=== PATIENT | male | born 1965 | race Hispanic/Latino ===

== ENCOUNTER 2020-12-06 14:09 | Inpatient (IN) | payer OTHER, SELFPAY ==
[2020-12-06 15:23] LABS: Absolute Lymphocytes (CBC) 0.6 K/uL (0.7-4.9); Basophils % 0.3 % (0-1.3); Hematocrit 45.5 % (39.6-49.0); Lymphocytes % 4.7 % (15.3-44.8); RBC Red Blood Cell Count 5.18 M/uL (4.33-5.43)
[2020-12-06] MEDS ORDERED: ENOXAPARIN 80 MG/0.8 ML SQ ONE (15:36)
[2020-12-06] MEDS ORDERED: ACETAMINOPHEN 500 MG TAB ONE (15:36)
[2020-12-06] MEDS ORDERED: METHYLPREDNISOLONE 125 MG INJ ONE (15:36)
[2020-12-06 15:38] LABS: Protime INR 1.58
[2020-12-06] MEDS ORDERED: NA CHLORIDE 0.9% 1,000 ML ONE (15:38)
[2020-12-06 16:06] LABS: ALT/SGPT 65 U/L (12-78); AST/SGOT 70 U/L (15-37); Albumin 2.6 g/dL (3.4-5.0); Alkaline Phosphatase 60 U/L (45-117); BUN Blood Urea Nitrogen 19 mg/dL (7-18); Bicarbonate 26 mmol/L (21-32); Bilirubin Direct 0.3 mg/dL (0-0.2); Bilirubin Total 0.7 mg/dL (0.2-1.0); Ferritin 1604.4 ng/mL (26-388); Glucose Level 131 mg/dL (74-106); Protein, Total 7.7 g/dL (6.4-8.2); Sodium Level 130 mmol/L (136-145); Troponin (Emerg Dept Use Only) < 0.02 ng/mL (0.0-0.045)
--- NOTE | 2020-12-06 16:09 | RAD REPORT ---
EXAM DESCRIPTION: RAD - Chest Single View - 12/06/2020 3:20 pm CLINICAL HISTORY: DYSPNEA, COVID positive December 01 COMPARISON: None TECHNIQUE: AP portable chest image was obtained 12/06/2020 3:20 pm . FINDINGS: Patchy airspace opacification present in the mid right lung field in the mid and lower lef t lung field. Given the history, bilateral COVID-19 pneumonia would be most likely. This is mild in s everity. No significant central pulmonary edema pattern. Heart and vasculature are normal. No measura ble pleural effusion and no pneumothorax. No acute bony abnormality seen. No acute aortic findings morris spected. IMPRESSION: Mild bilateral COVID-19 pneumonia pattern.
--- NOTE | 2020-12-06 16:49 | RAD REPORT ---
EXAM DESCRIPTION: CT - Chest For Pe Angio - 12/06/2020 4:33 pm CLINICAL HISTORY: DYSPNEA COMPARISON: Chest Single View dated 12/06/2020 TECHNIQUE: Dynamically enhanced 3 mm thick images of the chest were obtained during administration o f approximately 150mL Isovue 370 IV contrast. Coronal and oblique MIP reconstruction images were gene rated and reviewed. Exam utilizes a protocol to evaluate the pulmonary arterial tree. All CT scans are performed using dose optimization technique as appropriate and may include automated exposure control or mA/KV adjustment according to patient size. FINDINGS: No pulmonary emboli are identified. The aorta as imaged shows no acute or suspicious finding. No pericardial thickening or effusion. Bilateral ground-glass opacification is present primarily in a peripheral distribution. Findings are more pronounced in the superior segment and midportion of the left lower lobe. This is a well describ ed pattern with COVID-19 pneumonia and matches the provided clinical history. Non COVID viral pneumon ia can also have this appearance. Other etiologies are unlikely given the history and current clinica l environment. No pleural effusion or pleural thickening. No mediastinal or hilar suspicious masses. No chest wall masses or abnormal axillary lymphadenopathy. IMPRESSION: No pulmonary emboli identified. Mild to moderate severity bilateral COVID-19 pneumonia.
--- NOTE | 2020-12-06 17:10 | ER ---
Nurse's Notes [facility] – [place], [place] Name: Víctor Harper Age: 55 yrs Sex: Male : 1965 Arrival Date: 12/06/2020 Time: 14:10 Bed 25 Private MD: Diagnosis: Pneumonia due to SARS-associated coronavirus;Acute respiratory failure with hypoxia Presentation: 12/06 14:39 Chief complaint: Patient states: Covid+ 12/01/2020, S/S 11/29/2020. Feels worse now, ca1 cough, SOB, very weak. Coronavirus screen: Client reports previous positive COVID test result. Date of collection: December 01, 2020. Ebola Screen: Patient negative for fever greater than or equal to 101.5 degrees Fahrenheit, and additional compatible Ebola Virus Disease symptoms Patient denies exposure to infectious person. Patient denies travel to an Ebola-affected area in the 21 days before illness onset. Patient positive for the following Ebola Virus Disease associated symptoms:. Initial Sepsis Screen: Does the patient meet any 2 criteria? Temp <36.0*C (96.8*F)) or > 38.3*C (100.9*F). HR > 90 bpm. Yes Does the patient have a suspected source of infection? Yes: Productive cough/pneumonia. Risk Assessment: Do you want to hurt yourself or someone else? Patient reports no desire to harm self or others. Onset of symptoms was December 06, 2020. 14:39 Method Of Arrival: Wheelchair ca1 14:39 Acuity: LUCRETIA 2 ca1 Triage Assessment: 15:14 Respiratory: Onset: The symptoms/episode began/occurred 2 days ago . zb Historical: - Allergies: 14:42 No Known Allergies; ca1 - Home Meds: 14:42 None [Active]; ca1 - PMHx: 14:42 None; ca1 - PSHx: 14:42 None; ca1 - Immunization history:: Flu vaccine is not up to date. - Social history:: Smoking status: Patient denies any tobacco usage or history of. Screenin:13 Abuse screen: Denies threats or abuse. Denies injuries from another. Nutritional zb screening: No deficits noted. Tuberculosis screening: No symptoms or risk factors identified. Fall Risk None identified. Assessment: 15:00 General: Appears in no apparent distress. uncomfortable, Behavior is calm, cooperative, zb appropriate for age, Reports chills for >3 days, fever for > 3 days, feeling ill for > 3 days, fatigue for >3 days. Pain: Denies pain. Neuro: Level of Consciousness is awake, alert, obeys commands, Oriented to person, place, time, situation. Cardiovascular: Reports shortness of breath, Heart tones S1 S2 present Capillary refill < 3 seconds Patient's skin is warm and dry. Rhythm is sinus tachycardia Chest pain is denied. Respiratory: Reports shortness of breath at rest cough that is dry, Airway is patent Respiratory effort is even, unlabored, Respiratory pattern is regular, symmetrical, Breath sounds are clear bilaterally. the patient has moderate shortness of breath. GI: No signs and/or symptoms were reported involving the gastrointestinal system. Derm: Skin is intact, is healthy with good turgor, Skin is dry, Skin is normal, Skin temperature is hot. Musculoskeletal: Range of motion: intact in all extremities. 16:00 Reassessment: Patient appears in no apparent distress at this time. patient appears to zb be doing better. appears less fatigued. 17:05 Reassessment: ECP at bedside discussing care. zb 18:17 Reassessment: Patient appears in no apparent distress at this time. Patient and/or zb family updated on plan of care and expected duration. Pain level reassessed. patient states he is feeling better. currently awaiting a room. 18:20 Reassessment: attempted to call report. Advised to call back later. zb 18:50 Reassessment: hospitalist at bedside discussing care. zb 19:30 Reassessment: report called patient notified of room and admission. zb 20:41 Reassessment: patient left ER. zb Vital Signs: 14:39 BP 101 / 75; Pulse 121; Resp 20 S; Temp 103(TE); Pulse Ox 95% on R/A; Weight 84.37 kg ca1 (R); Height 5 ft. 9 in. (175.26 cm) (R); Pain 5/10; 15:20 BP 142 / 89; Pulse 110; Resp 21; Pulse Ox 88% on R/A; zb 15:35 BP 114 / 81; Pulse 107; Resp 22; Pulse Ox 95% on 3 lpm NC; zb 16:30 BP 114 / 81; Pulse 112; Resp 24; Pulse Ox 95% 3 lpm ; zb 17:16 BP 120 / 80; Pulse 88; Resp 25; Temp 99.2; zb 18:17 BP 110 / 82; Pulse 89; Resp 18; Pulse Ox 94% 3 lpm ; zb 19:30 BP 115 / 86; Pulse 83; Resp 21; Pulse Ox 97% 3 lpm ; zb 20:41 BP 125 / 89; Pulse 87; Resp 20; Pulse Ox 95% 3 lpm ; zb 14:39 Body Mass Index 27.47 (84.37 kg, 175.26 cm) ca1 ED Course: 14:10 Patient arrived in ED. as 14:42 Triage completed. ca1 14:42 Arm band placed on right wrist. ca1 14:44 Liset Mendoza FNP-C is PHCP. kb 14:44 Filemon Joy MD is Attending Physician. kb 14:46 Reji Jim PA is PHCP. kb 15:11 Evonne Sanchez, MIKALA is Primary Nurse. zb 15:13 Patient has correct armband on for positive identification. Bed in low position. Call zb light in reach. Side rails up X 1. dictaphone mechanic on. Pulse ox on. NIBP on. Door closed. Noise minimized. 15:14 Initial lab(s) drawn, by me, sent to lab. EKG done, by administrative tech. reviewed by Reji DINH COVID swab sent to lab. Flu and/or RSV swab sent to lab. Inserted saline lock: 20 gauge in right antecubital area, using aseptic technique. Blood collected. 15:21 CXR XRAY In Process Unspecified. EDMS 16:33 CT Chest For PE Angio In Process Unspecified. EDMS 17:09 Gurpreet Lloyd MD is Hospitalizing Provider. jr8 20:43 No provider procedures requiring assistance completed. Patient admitted, IV remains in zb place. Administered Medications: 15:30 Drug: SOLU-Medrol 125 mg Route: IVP; Site: right antecubital; zb 16:00 Follow up: Response: No adverse reaction; No change in condition zb 15:30 Drug: Lovenox 1 mg/kg Route: Sub-Q; Site: right lower abdomen; zb 17:14 Follow up: Response: No adverse reaction; Marked relief of symptoms zb 15:30 Drug: Tylenol 1000 mg Route: PO; zb 17:14 Follow up: Response: No adverse reaction; Temperature is decreased zb 15:30 Drug: NS 0.9% 1000 ml Route: IV; Rate: 1000 ml; Site: right antecubital; zb 17:09 Follow up: Response: No adverse reaction; Marked relief of symptoms; No change in zb condition; IV Status: Completed infusion; IV Intake: 1000ml Intake: 17:09 IV: 1000ml; Total: 1000ml. zb Outcome: 17:09 Decision to Hospitalize by Provider. albino 20:43 Admitted to Med/surg accompanied by tech, room 410, with oxygen, with chart, Report zb called to MIKALA Fountain 20:43 Condition: stable 20:43 Instructed on the need for admit, Demonstrated understanding of instructions. 20:44 Patient left the ED. zb Signatures: Dispatcher [employer] EDMS Liset Mendoza, SHAILA-Adilson LEEP-Jessica Antoine Josh, PA PA jr8 Dayan Lara, RN Evonne Linares RN RN zb Corrections: (The following items were deleted from the chart) 18:19 17:16 Pulse 88bpm; Resp 25bpm; Temp 99.2F; zb zb
--- NOTE | 2020-12-06 17:10 | EDPHYS ---
Physician Documentation [facility] Name: Víctor Harper Age: 55 yrs Sex: Male : 1965 Arrival Date: 12/06/2020 Time: 14:10 Bed 25 Private MD: ED Physician Filemon Joy HPI: 12/06 17:07 This 55 yrs old Male presents to ER via Wheelchair with complaints of jr8 Shortness Of Breath - covid+. 17:07 The patient has shortness of breath at rest. Onset: The symptoms/episode began/occurred jr8 gradually, 2 day(s) ago, and became worse and became persistent. Duration: The symptoms are continuous. The patient's shortness of breath is aggravated by talking, walking. Associated signs and symptoms: Pertinent positives: non-productive cough, fever. Severity of symptoms: At their worst the symptoms were moderate in the emergency department the symptoms are unchanged. The patient has not experienced similar symptoms in the past. The patient has been recently seen by a physician:. Patient diagnosed this past Friday with COVID. Stated that he has since been getting worse. Patinet 88% RA with tachypnea and fever upon arrival . Historical: - Allergies: 14:42 No Known Allergies; ca1 - Home Meds: 14:42 None [Active]; ca1 - PMHx: 14:42 None; ca1 - PSHx: 14:42 None; ca1 - Immunization history:: Flu vaccine is not up to date. - Social history:: Smoking status: Patient denies any tobacco usage or history of. ROS: 17:07 Eyes: Negative for injury, pain, redness, and discharge, ENT: Negative for injury, jr8 pain, and discharge, Neck: Negative for injury, pain, and swelling, Cardiovascular: Negative for chest pain, palpitations, and edema, Abdomen/GI: Negative for abdominal pain, nausea, vomiting, diarrhea, and constipation, Back: Negative for injury and pain, MS/Extremity: Negative for injury and deformity, Skin: Negative for injury, rash, and discoloration, Neuro: Negative for headache, weakness, numbness, tingling, and seizure. 17:07 Constitutional: Positive for body aches, chills, fever, malaise. 17:07 Respiratory: Positive for cough, dyspnea on exertion, shortness of breath. Exam: 17:07 Eyes: Pupils equal round and reactive to light, extra-ocular motions intact. Lids and jr8 lashes normal. Conjunctiva and sclera are non-icteric and not injected. Cornea within normal limits. Periorbital areas with no swelling, redness, or edema. ENT: Nares patent. No nasal discharge, no septal abnormalities noted. Tympanic membranes are normal and external auditory canals are clear. Oropharynx with no redness, swelling, or masses, exudates, or evidence of obstruction, uvula midline. Mucous membranes moist. Neck: Trachea midline, no thyromegaly or masses palpated, and no cervical lymphadenopathy. Supple, full range of motion without nuchal rigidity, or vertebral point tenderness. No Meningismus. Abdomen/GI: Soft, non-tender, with normal bowel sounds. No distension or tympany. No guarding or rebound. No evidence of tenderness throughout. Back: No spinal tenderness. No costovertebral tenderness. Full range of motion. Skin: Warm, dry with normal turgor. Normal color with no rashes, no lesions, and no evidence of cellulitis. MS/ Extremity: Pulses equal, no cyanosis. Neurovascular intact. Full, normal range of motion. Neuro: Awake and alert, GCS 15, oriented to person, place, time, and situation. Cranial nerves II-XII grossly intact. Motor strength 5/5 in all extremities. Sensory grossly intact. 17:07 Cardiovascular: Rate: tachycardic, Rhythm: regular, Pulses: Pulses are 2+ in right radial artery and left radial artery. Heart sounds: normal, normal S1and S2, no S3 or S4, no murmur, no rub, no gallop, Edema: is not appreciated. 17:07 Respiratory: mild respiratory distress is noted, Respirations: tachypnea, Breath sounds: are clear throughout, no bronchial sounds, no decreased breath sounds, no rales, rhonchi, no stridor, no wheezing. Vital Signs: 14:39 BP 101 / 75; Pulse 121; Resp 20 S; Temp 103(TE); Pulse Ox 95% on R/A; Weight 84.37 kg ca1 (R); Height 5 ft. 9 in. (175.26 cm) (R); Pain 5/10; 15:20 BP 142 / 89; Pulse 110; Resp 21; Pulse Ox 88% on R/A; zb 15:35 BP 114 / 81; Pulse 107; Resp 22; Pulse Ox 95% on 3 lpm NC; zb 16:30 BP 114 / 81; Pulse 112; Resp 24; Pulse Ox 95% 3 lpm ; zb 17:16 BP 120 / 80; Pulse 88; Resp 25; Temp 99.2; zb 18:17 BP 110 / 82; Pulse 89; Resp 18; Pulse Ox 94% 3 lpm ; zb 19:30 BP 115 / 86; Pulse 83; Resp 21; Pulse Ox 97% 3 lpm ; zb 20:41 BP 125 / 89; Pulse 87; Resp 20; Pulse Ox 95% 3 lpm ; zb 14:39 Body Mass Index 27.47 (84.37 kg, 175.26 cm) ca1 MDM: 14:44 Patient medically screened. kb 17:07 Data reviewed: vital signs, nurses notes, lab test result(s), EKG, radiologic studies, [facility] CT scan, plain films. Data interpreted: Pulse oximetry: on room air is 88 %. Interpretation: hypoxia. Counseling: I had a detailed discussion with the patient and/or guardian regarding: the historical points, exam findings, and any diagnostic results supporting the discharge/admit diagnosis, lab results, radiology results, the need for further work-up and treatment in the hospital. 12/06 14:57 Order name: Flu 12/06 14:57 Order name: Blood Culture Adult (2) 12/06 14:57 Order name: BMP; Complete Time: 17:12/06 14:57 Order name: C-Reactive Protein; Complete Time: 17:12/06 14:57 Order name: CBC with Diff; Complete Time: 16:12/06 14:57 Order name: D-Dimer; Complete Time: 16:05 12/06 14:57 Order name: Ferritin; Complete Time: 17:02 12/06 14:57 Order name: Lactate; Complete Time: 16:05 12/06 14:57 Order name: LFT's; Complete Time: 17:02 12/06 14:57 Order name: Procalcitonin; Complete Time: 17:02 12/06 14:57 Order name: PT-INR; Complete Time: 16:05 12/06 14:57 Order name: Ptt, Activated; Complete Time: 16:05 8 12/06 14:57 Order name: Troponin (emerg Dept Use Only); Complete Time: 17:02 8 12/06 14:57 Order name: CXR XRAY; Complete Time: 17:02 8 12/06 14:57 Order name: EKG; Complete Time: 14:58 8 12/06 14:57 Order name: Cardiac monitoring; Complete Time: 15:34 8 12/06 14:57 Order name: Droplet/Contact Precautions; Complete Time: 15:34 8 12/06 14:57 Order name: EKG - Nurse/Tech; Complete Time: 15:34 8 12/06 14:58 Order name: Blood Culture EDMD 12/06 16:05 Order name: CT Chest For PE Angio; Complete Time: 17:02 8 12/06 17:27 Order name: Regular EDMS 12/06 17:27 Order name: Basic Metabolic Panel EDMD 12/06 17:27 Order name: Basic Metabolic Panel EDMD 12/06 17:34 Order name: COVID-19/FLU A+B; Complete Time: 17:40 EDMS 12/06 14:57 Order name: IV Start; Complete Time: 15:34 [facility] 12/06 14:57 Order name: Labs collected and sent; Complete Time: 15:34 [facility] 12/06 14:57 Order name: O2 Per Protocol; Complete Time: 15:34 8 12/06 14:57 Order name: O2 Sat Monitoring; Complete Time: 15:34 Administered Medications: 15:30 Drug: SOLU-Medrol 125 mg Route: IVP; Site: right antecubital; zb 16:00 Follow up: Response: No adverse reaction; No change in condition zb 15:30 Drug: Lovenox 1 mg/kg Route: Sub-Q; Site: right lower abdomen; zb 17:14 Follow up: Response: No adverse reaction; Marked relief of symptoms zb 15:30 Drug: Tylenol 1000 mg Route: PO; zb 17:14 Follow up: Response: No adverse reaction; Temperature is decreased zb 15:30 Drug: NS 0.9% 1000 ml Route: IV; Rate: 1000 ml; Site: right antecubital; zb 17:09 Follow up: Response: No adverse reaction; Marked relief of symptoms; No change in zb condition; IV Status: Completed infusion; IV Intake: 1000ml Disposition: 12/07 08:04 Co-signature as Attending Physician, Filemon Joy MD I agree with the assessment and kdr plan of care. Disposition: 12/06/20 17:09 Hospitalization ordered by Gurpreet Lloyd for Inpatient Admission. Preliminary diagnosis are Pneumonia due to SARS-associated coronavirus, Acute respiratory failure with hypoxia. - Bed requested for Telemetry/MedSurg (Inpatient). - Status is Inpatient Admission. zb - Condition is Fair. - Problem is new. - Symptoms have improved. Signatures: Dispatcher [employer] EDMS Liset Mendoza, ASSISTANT [employer]OMENS [employer]LEYB[employer] COACH-C ASSISTANT WOMENS VOLLEYB[employer] COACH-Ckb Maranda Gregory Kevin, MD MD kdr Roszak, Josh, PA PA jr8 Dayan Lara, RN RN ca1 Evonne Sanchez RN RN zb Corrections: (The following items were deleted from the chart) 12/06 16:27 14:58 Influenza Screen (A ordered. EDMS EDMS 16:27 14:58 CORONAVIRUS+MR.LAB.BRZ ordered. EDMD EDMS 17:49 17:09 Hospitalization Ordered by Gurpreet Lloyd MD for Inpatient Admission. Preliminary bd diagnosis is Pneumonia due to SARS-associated coronavirus; Acute respiratory failure with hypoxia. Bed requested for Telemetry/MedSurg (Inpatient). Status is Inpatient Admission. Condition is Fair. Problem is new. Symptoms have improved. jr8 20:44 17:49 12/06/2020 17:09 Hospitalization Ordered by Gurpreet Lloyd MD for Inpatient zb Admission. Preliminary diagnosis is Pneumonia due to SARS-associated coronavirus; Acute respiratory failure with hypoxia. Bed requested for Telemetry/MedSurg (Inpatient). Status is Inpatient Admission. Condition is Fair. Problem is new. Symptoms have improved. bd
[2020-12-06] MEDS ORDERED: ONDANSETRON 4 MG/2 ML VIAL IV PRN (17:22)
[2020-12-06] MEDS ORDERED: ALBUTEROL 2.5 MG/3 ML NEB SOL NEB PRN (17:22)
[2020-12-06] MEDS ORDERED: IPRATROPIUM BROM 0.5MG/2.5ML NEB PRN (17:22)
[2020-12-06 17:31] LABS: SARS-COV-2 RT PCR POSITIVE (NEGATIVE)
[2020-12-06] MEDS ORDERED: ACETAMINOPHEN 325 MG TABLET PO PRN (17:42)
[2020-12-06] MEDS: ENOXAPARIN 40 MG/0.4 ML SQ SCH (18:00)
[2020-12-07 00:16] VITALS: BMI 29.5
--- NOTE | 2020-12-07 01:21 | P.HP ---
Certification for Inpatient Patient admitted to: Inpatient With expected LOS: >2 Midnights Patient will require the following post-hospital care: None Practitioner: I am a practitioner with admitting privileges, knowledge of patient current condition, hospital course, and medical plan of care. Services: Services provided to patient in accordance with Admission requirements found in Title 42 Section 412.3 of the Code of Federal Regulations Patient History Date of Service: 12/07/20 Primary Care Provider: Dr. Farnsworth Reason for admission: covid pneumonia History of Present Illness: Mr. Harper is a 55 yo male with history of HTN here today with fever, cough, tachypnea, and SOB. Symptoms began last Friday, and he was diagnosed with COVID on Friday. He initially was improving but now with night sweats, chills, anorexia, weakness, fatigue, nausea. Denies palpitations, dysuria, diarrhea, vomiting. He has difficulty talking in complete sentences. Sats 88% on room air. Now on 3L NC, sats improved. WBC 12.3. D Dimer 698. Na 130. K 4. Cl 97. HCO3 26. BUN 19. Cr 1.28. Glu 131. CTPE with no pulmonary emboli identified. CT and CXR consistent with mild to moderate severity bilateral COVID PNA Allergies No Known Allergies Allergy (Verified 02/05/16 07:36) Home Medications: NK [No Home Meds] 02/05/16 - Past Medical/Surgical History Has patient received pneumonia vaccine in the past: No Diabetic: No -: HTN, not on meds -: no sx hx - Social History Smoking Status: Former smoker Alcohol use: No CD- Drugs: No Caffeine use: Yes Place of Residence: Home Review of Systems General: Fever, Chills, Sweats, Weakness, Malaise, As per HPI Eyes: Unremarkable ENT: Unremarkable Respiratory: Cough, Shortness of Breath, As per HPI Cardiovascular: Unremarkable Gastrointestinal: Nausea, As per HPI Genitourinary: Unremarkable Musculoskeletal: Unremarkable Integumentary: Unremarkable Neurological: Unremarkable Lymphatics: Unremarkable Physical Examination - Vital Signs Temperature: 97.6 F Blood Pressure: 107/77 Pulse: 74 Respirations: 18 Pulse Ox (%): 95 - Physical Exam General: Alert, In no apparent distress, Oriented x3, Cooperative, Other (difficulty talking in complete sentences) HEENT: Atraumatic, Normocephalic, PERRLA, Mucous membr. moist/pink, EOMI, Sclerae nonicteric Neck: Supple, 2+ carotid pulse no bruit, JVD not distended, No Thyromegaly, No LAD Respiratory: Diminished, Expiratory wheezes Cardiovascular: No edema, Normal pulses, Regular rate/rhythm, Normal S1 S2, No gallops, No rubs, No murmurs Capillary refill: <2 Seconds Gastrointestinal: Normal bowel sounds, Soft and benign, W/out succussion splash, No ascites, No tenderness, No masses, No rebound, No guarding Musculoskeletal: No clubbing, No swelling, No contractures, No erythema, No tenderness, No warmth Integumentary: No rashes, No breakdown, No significant lesion, No tenderness/swelling, No erythema, No warmth, No cyanosis Neurological: Normal strength at 5/5 x4 extr, Normal tone, Sensation intact, Cranial nerves 3-12 intact, Normal affect Lymphatics: No axilla or inguinal lymphadenopathy - Studies Laboratory Data (last 24 hrs) 12/06/20 15:29: Influenza Type A RNA Negative, Influenza Type B RNA Negative, SARS-CoV-2 RNA (RT-PCR) Positive A 12/06/20 15:06: Procalcitonin 0.30 H 12/06/20 15:06: Lactic Acid 1.5 12/06/20 15:06: PT 18.3 H, INR 1.58, APTT 28.5, D-Dimer 698 H* 12/06/20 15:06: WBC 12.30 H, RBC 5.18, Hgb 15.6, Hct 45.5, MCV 87.8, MCH 30.1, MCHC 34.2, RDW 13.6, Plt Count 250, MPV 9.0, Neutrophils % 89.2 H, Lymphocytes % 4.7 L, Monocytes % 5.8, Eosinophils % 0.0, Basophils % 0.3, Absolute Neutrophils 11.0 H, Absolute Lymphocytes 0.6 L, Absolute Monocytes 0.7, Absolute Eosinophils 0.0, Absolute Basophils 0.0 12/06/20 15:06: Sodium 130 L, Potassium 4.0, Chloride 97 L, Carbon Dioxide 26, BUN 19 H, Creatinine 1.28, Estimated GFR 58 L, Glucose 131 H, Calcium 8.9, Ferritin 1604.4 H, Total Bilirubin 0.7, Direct Bilirubin 0.3 H, AST 70 H, ALT 65, Alkaline Phosphatase 60, Rapid Troponin I < 0.02, C-Reactive Protein 145.00 H, Serum Total Protein 7.7, Albumin 2.6 L, Globulin 5.1 H, Albumin/Globulin Ratio 0.5 L Assessment and Plan - Problems (Diagnosis) (1) Pneumonia due to COVID-19 virus Current Visit: Yes Status: Acute Plan: on COVID supplements, solumedrol, ivermectin pulmonology consulted, respiratory consulted, daily sats, home O2 order lovenox for DVT prophylaxis, CTPE negative for PE Na low on admission, received 1L NS, will recheck in the AM. patient reported marked improvement after receiving fluids, suspect dehydration. currently on nasal canula (2) HTN (hypertension) Current Visit: Yes Status: Chronic Plan: patient reports diagnosis of HTN in the past, but not on medications. BP is currently stable. will continue to monitor. Qualifiers: Hypertension type: essential hypertension Qualified Code(s): I10 - Essential (primary) hypertension Discharge Plan: Home Plan to discharge in: 48 Hours - Advance Directives Does patient have a Living Will: No Does patient have a Durable POA for Healthcare: No - Code Status/Comfort Care Code Status Assessed: Yes (DNI) Critical Care: No Time Spent Managing Pts Care (In Minutes): 70
[2020-12-07] MEDS: BENZONATATE 100 MG CAP PO PRN ×2 (02:20→20:05)
[2020-12-07] MEDS: MELATONIN 5 MG TABLET PO PRN ×2 (02:20→20:06)
[2020-12-07 04:26] LABS: Potassium 4.3 mmol/L (3.5-5.1)
--- NOTE | 2020-12-07 07:20 | EKG ---
Test Date: 2020-12-06 Test Time: 14:58:51 Documentation Supervisor: NEENA MEASUREMENT RESULTS: Intervals: Rate: 114 NV: 134 QRSD: 86 QT: 338 QTc: 465 [place]: P: 60 NV: 134 QRS: 193 T: 23 INTERPRETIVE STATEMENTS: Sinus tachycardia Right superior axis deviation Abnormal ECG No previous ECG available for comparison Electronically Signed On 12-07-20 07:18:12 CDT by Lenard Luevano
[2020-12-07] MEDS: ENOXAPARIN 40 MG/0.4 ML SQ SCH (09:29)
[2020-12-07] MEDS: METHYLPREDNISOLONE 125 MG INJ IV SCH ×2 (09:29→20:06)
[2020-12-07] MEDS: VITAMIN D 1000 UNIT TAB PO SCH (09:29)
[2020-12-07] MEDS: ASCORBIC ACID 500 MG TABLET PO SCH ×4 (09:30→20:05)
[2020-12-07] MEDS: THIAMINE HCL 100 MG TABLET PO SCH (09:30)
[2020-12-07] MEDS: FAMOTIDINE 20 MG TAB PO SCH ×2 (09:36→20:05)
[2020-12-07] MEDS: ZINC SULFATE 220 MG CAP PO SCH (09:36)
[2020-12-07] MEDS ORDERED: IVERMECTIN 3 MG TABLET PO SCH (10:00)
--- NOTE | 2020-12-07 13:02 | P.CNS ---
Date of Consult: 12/07/20 Primary Care Provider: Dr. Farnsworth Chief Complaint: covid pneumonia History of Present Illness: Patient is 55 years of age with a history of hypertension symptoms began last Friday fever cough shortness of breath diagnosed with vu virus last Friday admitted to the hospital with hypoxemia is currently doing well no new complaints very comfortable on oxygen Allergies No Known Allergies Allergy (Verified 02/05/16 07:36) Home Medications: NK [No Home Meds] 02/05/16 - Past Medical/Surgical History Diabetic: No -: HTN, not on meds -: no sx hx - Social History Alcohol use: No CD- Drugs: No Caffeine use: Yes Place of Residence: Home Review of Systems General: Weakness Respiratory: Shortness of Breath Physical Examination Temp Pulse Resp BP Pulse Ox 98.3 F 74 16 123/83 95 12/07/20 12:00 12/07/20 12:00 12/07/20 12:00 12/07/20 12:00 12/07/20 12:00 Laboratory Data (last 24 hrs) 12/06/20 15:06: PT 18.3 H, INR 1.58, APTT 28.5 12/06/20 15:06: WBC 12.30 H, Hgb 15.6, Hct 45.5, Plt Count 250 12/06/20 15:06: Sodium 130 L, Potassium 4.0, BUN 19 H, Creatinine 1.28, Glucose 131 H, Total Bilirubin 0.7, AST 70 H, ALT 65, Alkaline Phosphatase 60 - Problems (1) Pneumonia due to COVID-19 virus Current Visit: Yes Status: Acute Plan: Patient is 55 years of age admitted with vu virus pneumonia is have bilateral ground-glass changes on CT scan no pulmonary emboli chemistries reviewed mildly elevated white count recommend discharge home on oxygen with prednisone 20 mg twice a day least 10 days and then taper down anticoagulation consider aspirin follow-up with me in 1 week
--- NOTE | 2020-12-07 15:04 | P.PN ---
Subjective Date of Service: 12/07/20 Primary Care Provider: Dr. Farnsworth Chief Complaint: covid pneumonia Patient states he is doing much better. He is currently tolerating 2 L oxygen by nasal cannula. Physical Examination - Vital Signs Temperature: 98.3 F Blood Pressure: 123/83 Pulse: 74 Respirations: 16 Pulse Ox (%): 95 - Physical Exam General: Alert, In no apparent distress HEENT: Mucous membr. moist/pink Neck: Supple, JVD not distended Respiratory: Other (Nonlabored breathing) Cardiovascular: No edema, Regular rate/rhythm Gastrointestinal: Soft and benign, Non-distended Musculoskeletal: No swelling Integumentary: No rashes Neurological: Normal strength at 5/5 x4 extr - Studies Laboratory Data (last 24 hrs) 12/06/20 15:06: PT 18.3 H, INR 1.58, APTT 28.5 12/06/20 15:06: WBC 12.30 H, Hgb 15.6, Hct 45.5, Plt Count 250 12/06/20 15:06: Sodium 130 L, Potassium 4.0, BUN 19 H, Creatinine 1.28, Glucose 131 H, Total Bilirubin 0.7, AST 70 H, ALT 65, Alkaline Phosphatase 60 Assessment And Plan - Current Problems (Diagnosis) (1) Acute respiratory failure with hypoxia Current Visit: Yes Status: Acute (2) Pneumonia due to COVID-19 virus Current Visit: Yes Status: Acute (3) HTN (hypertension) Current Visit: Yes Status: Chronic Qualifiers: Hypertension type: essential hypertension Qualified Code(s): I10 - Essential (primary) hypertension - Plan Continue IV steroid, vitamin supplementation, zinc supplementation. Status post Ivermectin. Patient tolerating 2 L of oxygen by nasal cannula. Aspirin for anticoagulation. Discharge to home with oxygen if patient remains stable on the oxygen by nasal cannula.
[2020-12-08 04:16] LABS: Absolute Lymphocytes (CBC) 0.8 K/uL (0.7-4.9); Basophils % 0.5 % (0-1.3); Hematocrit 43.3 % (39.6-49.0); Lymphocytes % 4.2 % (15.3-44.8); MPV 9.7 fL (7.6-11.3); RBC Red Blood Cell Count 4.84 M/uL (4.33-5.43)
[2020-12-08 06:23] LABS: C-Reactive Protein 66.1 mg/L (<3.00); Potassium 4.3 mmol/L (3.5-5.1)
[2020-12-08] MEDS: FAMOTIDINE 20 MG TAB PO SCH (09:40)
[2020-12-08] MEDS: VITAMIN D 1000 UNIT TAB PO SCH (09:40)
[2020-12-08] MEDS: ENOXAPARIN 40 MG/0.4 ML SQ SCH (09:40)
[2020-12-08] MEDS: THIAMINE HCL 100 MG TABLET PO SCH (09:41)
[2020-12-08] MEDS: ZINC SULFATE 220 MG CAP PO SCH (09:41)
[2020-12-08] MEDS: METHYLPREDNISOLONE 125 MG INJ IV SCH (09:41)
[2020-12-08] MEDS: ASCORBIC ACID 500 MG TABLET PO SCH ×3 (09:41→17:04)
[2020-12-08] MEDS ORDERED: Pegfilgrastim-CBQV 6 MG/0.6 ML SYR SQ ONE (10:09)
--- NOTE | 2020-12-08 14:44 | P.DS ---
Admission Date: 12/06/20 Discharge Date: 12/08/20 Primary Care Provider: Dr. Farnsworth Disposition: ROUTINE DISCHARGE Reason for Admission: covid pneumonia Consultations: Pulmonary-Dr. Mott - Problems (1) Acute respiratory failure with hypoxia Current Visit: Yes Status: Acute (2) Pneumonia due to COVID-19 virus Current Visit: Yes Status: Acute (3) HTN (hypertension) Current Visit: Yes Status: Chronic Qualifiers: Hypertension type: essential hypertension Qualified Code(s): I10 - Essential (primary) hypertension (4) Sepsis Current Visit: Yes Status: Acute Brief History of Present Illness: 55-year-old gentleman with a history of hypertension presented to the emergency department fever and cough and tachypnea. Patient was diagnosed with COVID infection 5 days prior. Chest x-ray done in the ED demonstrated bilateral infiltrates consistent with COVID pneumonia. Patient was hypoxic on room air. He was admitted for further management. Hospital Course: Patient admitted to the medical floor put on oxygen, started on IV Solu-Medrol, vitamin D and C supplementation and zinc supplementation. He was also given Ivermectin. Patient's respiratory condition stabilized on 2 L of oxygen by nasal cannula good oxygen saturation. He had leukocytosis which is deemed to be steroid induced. Patient states he feels much better today. He is discharged with home oxygen and prednisone therapy. Aspirin is ordered for thromboembolism prophylaxis. Patient will follow with Dr. Mott within 1 week. He understands if he develops more shortness of breath on the oxygen or has to increase his oxygen to maintain saturation above 90%, he may have to call his provider or come to the ED for further evaluation. Vital Signs/Physical Exam: Temp Pulse Resp BP Pulse Ox 97.7 F 77 16 117/76 92 12/08/20 12:00 12/08/20 12:00 12/08/20 12:00 12/08/20 12:00 12/08/20 12:00 General: Alert, In no apparent distress Neck: JVD not distended Respiratory: Other (Nonlabored breathing.) Cardiovascular: No edema, Regular rate/rhythm Gastrointestinal: Soft and benign, Non-distended, No tenderness Musculoskeletal: No swelling Integumentary: No rashes Neurological: Normal strength at 5/5 x4 extr Laboratory Data at Discharge: WBC 19.10 K/uL (4.3-10.9) H D 12/08/20 03:37 Hgb 14.4 g/dL (13.6-17.9) 12/08/20 03:37 Hct 43.3 % (39.6-49.0) 12/08/20 03:37 Plt Count 316 K/uL (152-406) D 12/08/20 03:37 PT 18.3 SECONDS (9.5-12.5) H 12/06/20 15:06 INR 1.58 12/06/20 15:06 APTT 28.5 SECONDS (24.3-36.9) 12/06/20 15:06 Sodium 135 mmol/L (136-145) L 12/08/20 03:37 Potassium 4.3 mmol/L (3.5-5.1) 12/08/20 03:37 BUN 26 mg/dL (7-18) H 12/08/20 03:37 Creatinine 0.98 mg/dL (0.55-1.3) 12/08/20 03:37 Glucose 169 mg/dL (74-106) H 12/08/20 03:37 Total Bilirubin 0.7 mg/dL (0.2-1.0) 12/06/20 15:06 AST 70 U/L (15-37) H 12/06/20 15:06 ALT 65 U/L (12-78) 12/06/20 15:06 Alkaline Phosphatase 60 U/L (45-117) 12/06/20 15:06 Home Medications: Aspirin [Aspirin EC 325 MG] 325 mg PO DAILY #30 tablet. 12/07/20 predniSONE [Deltasone*] 10 mg PO BID #70 tab 12/07/20 Ascorbic Acid [Vitamin C*] 500 mg PO QID #120 tablet 12/08/20 Benzonatate [Tessalon Perle*] 100 mg PO TID PRN #30 cap 12/08/20 Cholecalciferol (Vitamin D3) [Vitamin D 1000 Iu Tab*] 4,000 unit PO DAILY #120 tab 12/08/20 Famotidine [Pepcid*] 40 mg PO BID #120 tab 12/08/20 Ivermectin 18 mg PO ONCE #1 tablet 12/08/20 Thiamine HCl [Vitamin B-1*] 200 mg PO DAILY #60 tablet 12/08/20 Zinc Sulfate [Zinc Sulfate*] 220 mg PO DAILY #30 cap 12/08/20 New Medications: Aspirin [Aspirin EC 325 MG] 325 mg PO DAILY #30 tablet. 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
[2020-12-08 17:07] VITALS: BP 121/74; TEMP 97.1
[2020-12-08 18:10] VITALS: O2SAT 89
== END 2020-12-08 17:00 | disposition home or self-care (01) | DRG 871 ==
LOC: ER 14:09 → ERHOLD 17:25 → 4TH 20:05
PROVIDERS: ADMIT Internal Medicine Nephrology; ATTEND Internal Medicine
DX: A41.89 Other specified sepsis (principal); U07.1 COVID-19; J12.82 Pneumonia due to coronavirus disease 2019; J96.01 Acute respiratory failure with hypoxia; I10 Essential (primary) hypertension; T38.0X5A Adverse effect of glucocorticoids and synthetic analogues, initial encounter; Z87.891 Personal history of nicotine dependence; Z79.82 Long term (current) use of aspirin; Z79.52 Long term (current) use of systemic steroids; Z79.899 Other long term (current) drug therapy
CPT/HCPCS: 0240U; 36415; 71045; 71275; 80048; 80076; 82728; 83036; 83605; 84145; 84484; 85025; 85379; 85610; 85730; 86140; 87040; 93005; 96361; 96372; 96374; 99285; J1650; J2930; J7030; Q5111; Q9967